=== PATIENT | male | born 1940 | race Caucasian/White ===

== ENCOUNTER 2017-11-29 10:28 | Emergency (ER) | payer MEDICARE ==
--- NOTE | 2017-11-29 10:34 | Emergency Department Record ---
History of Present Illness - General Stated Complaint: FALL Time Seen by Provider: 11/29/17 10:29 Source: Patient, Family, EMS Mode of Arrival: Stretcher Limitations: No limitations - History of Present Illness Initial Comments: 77 yo male presents with weakness, fall, and unable to get up for 2 days. He reportedly fell two days ago. He was in bed and was getting up. He states he slid to the floor without significant impact. He slid to the floor without hurting himself. He has been too weak to get up since then. He denies any injury. He denies any pain. He states he is generally so weak all over he is unable to stand, walk or function. No vision changes, no lateralizing weakness , no speech changes. No mental status changes. His has been trying to care for him on the floor for the last two days. He saw his PCP on the and Oncologist on the and was at his baseline. He states he was diagnosed in May with atrial fibrillation during an admission for pneumonia. He states he has not followed up with a assistant to the dean since being in the hospital. No headaches. No syncope. No shaking chills. His PCP is in [place] His Oncologist in at [facility] PMHx: Atrial fibrillation, Chronic Lymphocytic Leukemia, RA, HTN, Elevated Cholesterol, DM, Prostate Cancer, Anemia, UTI. MD Complaint: Cough, Shortness of breath -: Awoke with symptoms Severity: Moderate Quality: Other Consistency: Constant Improves With: Nothing Worsens With: Movement Context: Other Associated Symptoms: Other Treatments Prior to Arrival: None - Related Data Home Medications Medication Instructions Recorded Confirmed Last Taken Cyclosporine 50 mg PO DAILY 11/29/17 11/29/17 Unknown Finasteride [Proscar] 5 mg PO DAILY 11/29/17 11/29/17 Unknown Fluconazole [Diflucan] 400 mg PO DAILY 11/29/17 11/29/17 Unknown Lisinopril/Hydrochlorothiazide 1 each PO DAILY 11/29/17 11/29/17 Unknown [Lisinopril-Hctz 20-25 mg Tab] Metoprolol Tartrate [Lopressor] 25 mg PO BID 11/29/17 11/29/17 Unknown Allergies Allergy/AdvReac Type Severity Reaction Status Date / Time celecoxib AdvReac Unknown NAUSEA AND Verified 11/29/17 10:33 VOMITING Review of Systems Constitutional: Reports: Malaise, Weakness. Denies: Chills, Fever, Night sweats Eyes: Denies: Eye discharge, Eye pain, Photophobia, Vision change ENT: Denies: Congestion, Throat pain Respiratory: Denies: Cough, Dyspnea, Hemoptysis, Stridor, Wheezes Cardiovascular: Reports: Palpitations. Denies: Chest pain, Dyspnea on exertion , Edema, Syncope Endocrine: Denies: Fatigue Gastrointestinal: Denies: Abdominal pain, Diarrhea, Nausea, Vomiting Genitourinary: Denies: Dysuria, Frequency, Hematuria Musculoskeletal: Denies: Arthralgia, Back pain, Joint swelling, Myalgia Skin: Reports: Bruising Neurological: Reports: Weakness. Denies: Abnormal gait, Confusion, Headache, Numbness, Tingling, Tremors, Vertigo Psychiatric: Denies: Anxiety Hematological/Lymphatic: Reports: Easy bruising. Denies: Easy bleeding, Swollen glands Past Medical History - SOCIAL HISTORY Smoking Status: Former smoker - RESPIRATORY Hx Respiratory Disorders: No - CARDIOVASCULAR Hx Cardio Disorders: Yes Hx Hypertension: Yes (on meds good control) Hx Vascular Disease: Yes (problems with blood vessels in feet on meds) Comment:: high cholesterol - NEURO Hx Neuro Disorders: Yes Hx Neuropathy: Yes (feet) - GI Hx GI Disorders: Yes Hx Abdominal Pain: Yes Hx Reflux: Yes (on meds good control) Hx Nausea/Vomiting: Yes Hx of Polyps: Yes (colon) - Hx Genitourinary Disorders: Yes Hx Prostate Problems: Yes (enlarged prostate on meds) - ENDOCRINE Hx Endocrine Disorders: Yes Hx Diabetes: Yes Comment:: 107-124 - MUSCULOSKELETAL Hx Musculoskeletal Disorders: Yes Hx Arthritis: No Comment:: inflammatory infection in bed for 1 month in 7 and 8 16 tx prednisone - PSYCH Hx Psych Problems: No - HEMATOLOGY/ONCOLOGY Hx Hematology/Oncology Disorders: Yes Hx Bruising: Yes Hx Cancer: Yes (tongue, melanoma on back, prostate) Hx Chemotherapy: No Hx Radiation Therapy: No Family Medical History Hx Heart Disease: Father, Mother, Brother/Sister Physical Exam - General General Appearance: Alert, Oriented x3, Cooperative, No acute distress, Other ( Alert, clear speech, no confusion. Appears tired. Non labored in no distress.) Limitations: No limitations - Head Head exam: Atraumatic, Normal inspection - Eye Eye exam: Normal appearance, PERRL. negative: Conjunctival injection, Scleral icterus - ENT ENT exam: Normal exam, Mucous membranes moist Ear exam: Normal external inspection Nasal Exam: Normal inspection Mouth exam: Normal external inspection - Neck Neck exam: Normal inspection - Respiratory Respiratory exam: Normal lung sounds bilaterally. negative: Accessory muscle use, Decreased breath sounds, Prolonged expiratory, Respiratory distress, Rhonchi, Stridor, Wheezes - Cardiovascular Cardiovascular Exam: Irregular rhythm, Tachycardia. negative: Regular rate, Normal rhythm Peripheral Pulses: 2+: Radial (R), Radial (L) - GI/Abdominal GI/Abdominal exam: Soft. negative: Distended, Guarding, Rebound, Rigid, Tenderness - Rectal Rectal exam: Deferred - exam: Deferred - Extremities Extremities exam: negative: Normal inspection (chronic bruising), Calf tenderness, Full ROM, Joint swelling, Pedal edema, Tenderness - Back Back exam: Denies: CVA tenderness (R), CVA tenderness (L), Tenderness - Neurological Neurological exam: Abnormal gait, Alert, CN II-XII intact, Oriented X3, Other ( The patient moves all extremities symmetrically, no focal weakness, he is globally weak all over). negative: Motor sensory deficit - Psychiatric Psychiatric exam: Normal affect, Normal mood - Skin Skin exam: Other (forearm bruising) Course - Reevaluation(s) Reevaluation #1: EKG #1: 11/29/17 Rate: 128 Rhythm: sinus tach with numerous PAC's [place]: Normal Intervals: Normal ST segments: NS changes Prior: 03/15/16 NSR rate of 64 11/29/17 10:48 Vitals reviewed. 11/29/17 10:50 The labs to this point were reviewed CBC with WBC of 10.8 and Hgb of 8.7 The Hgb was 9.0 on 11/21/17 The CMP was reviewed Na 130 HCO3 19 AG 20 BUN 37 CR 1.5 Lactic Acid is normal at 1.4 Troponin is 0.01 HR increased to 140's Second EKG ordered EKG #2: 1138 Rate: 147 Rhythm: Atrial Fibrillation [place]: Normal Intervals: Normal ST segments: NS diffuse changes Prior: 1038 Cardizem ordered for rate control 11/29/17 11:44 The CXR was negative for acute process. No PVC, No CMG, No effusions The HCT was negative for acute changes. Chronic changes I explained with his atrial fibrillation of unknown duration I recommend anticoagulation at this time. His Hgb is stable anemia without significant change. [facility] does not have cardiology or ECHO for several days. I recommended transfer to a hospital with specialty care. The patient and spouse request [facility]. 11/29/17 11:58 11/29/17 12:15 Total CK 479 11/29/17 12:26 BP 101/69, on Cardizem drip. Tolerating well. Awaiting [facility] call back. Medical Decision Making - Lab Data Result diagrams: 11/29/17 10:45 11/29/17 10:45 Disposition Disposition: Transfer Clinical Impression: Atrial fibrillation with rapid ventricular response, Dehydration, Renal insufficiency Anemia Qualifiers: Anemia type: unspecified type Qualified Code(s): D64.9 - Anemia, unspecified Disposition: Acute Care Hospital Transfer Transfer To: [facility] Reason For Transfer: Afib with RVR Accepting Physician: Lili Time Discussed w/Accepting Physician: 12:33 Condition: (2) Stable Time of Disposition: 12:33 Quality - Quality Measures Quality Measures: N/A - Blood Pressure Screening Does Patient Have Any of the Following: Active Dx of HTN Blood Pressure Classification: Normal BP Reading Systolic Measurement: 114 Diastolic Measurement: 68 Screening for High Blood Pressure: Patient Exclusion, Hx of HTN [[id number]]
[2017-11-29] MEDS ORDERED: 0.9 % SODIUM CHLORIDE 1000ML 1,000 ML IV ONE (10:47)
[2017-11-29 10:56] LABS: HEMATOCRIT 29.3 % (42.0-52.0); HEMOGLOBIN 8.7 gm/dl (14.0-18.0); MEAN CELL VOLUME 81.6 fl (81-97); MEAN CORPUSCULAR HEMOGLOBIN 24.2 pg (27-33); MEAN CORPUSCULAR HGB CONC 29.7 g/dl (32-36); MEAN PLATELET VOLUME 11.3 fl (7.4-10.4); PLATELET COUNT 136 K/uL (130-400); RED BLOOD COUNT 3.59 M/uL (4.40-5.70); RED CELL DISTRIBUTION WIDTH 16.6 % (11.5-14.5); WHITE BLOOD COUNT W/O DIFF 10.8 K/uL (4.2-12.2)
[2017-11-29] MEDS ORDERED: ONDANSETRON HCL IV 4 MG/2 ML VIAL IVP ONE ×2 (11:00→14:29)
[2017-11-29 11:16] LABS: PLATELET ESTIMATE NORMAL (NORMAL)
[2017-11-29 11:24] LABS: BLOOD UREA NITROGEN 37 mg/dL (8-23); CREATININE 1.5 mg/dL (0.7-1.2); EST GLOMERULAR FILTRATION RATE 48 mL/min
[2017-11-29 11:25] LABS: INR 1.2; PROTHROMBIN TIME (PATIENT) 13.2 SECONDS (9.5-12.1); TOTAL PROTEIN 7.4 g/dL (6.6-8.7)
[2017-11-29 11:27] LABS: GLUCOSE,RANDOM 141 mg/dL (74-109)
[2017-11-29 11:30] LABS: ALB/GLOB RATIO 0.8 (1.1-1.8); ALBUMIN 3.3 g/dL (4.0-5.0); ALKALINE PHOSPHATASE 75 U/L (40-129); ALT/SGPT 40 U/L (<41); AST/SGOT 44 U/L (10.0-50.0)
[2017-11-29] MEDS ORDERED: DILTIAZEM 25MG/5ML VIAL IV ONE (11:43)
[2017-11-29] MEDS ORDERED: DILTIAZEM HCL 125 MG in 0.9 % SODIUM CHLORIDE 100ML 100 ML IV SCH (11:45)
[2017-11-29 11:53] LABS: CKMB 1.3 ng/mL (<6.73)
[2017-11-29] MEDS ORDERED: HEPARIN SODIUM/D5W 25,000 UNITS/500 ML BAG IV SCH (12:15)
--- NOTE | 2017-11-30 20:51 | RADIOLOGY REPORT ---
EXAM: CHEST 2 VIEWS HISTORY: COUGH AND WEAKNESS. TECHNIQUE: Upright AP and lateral views of the chest. COMPARISON: None. FINDINGS: The heart is not enlarged and the pulmonary vasculature is nondilated. The thoracic aorta is mildly tortuous and atherosclerotic. Minor linear scarring vs. atelectasis is present in the lateral left lung base. The lungs and pleural spaces are otherwise clear. There are degenerative endplate changes throughout the thoracic spine. Mild to moderate degenerative changes of the shoulder girdles. IMPRESSION: 1. MINOR LINEAR SCARRING VS. ATELECTASIS WITHIN THE LATERAL LEFT LUNG BASE. 2. NOT MENTIONED ABOVE IS A PROBABLE HIATAL HERNIA. J[facility]BER: [id number] [facility]
--- NOTE | 2017-11-30 20:57 | CT SCAN REPORT ---
EXAM: CT SCAN HEAD WO CONTRAST HISTORY: WEAKNESS. NAUSEA AND VOMITING. TECHNIQUE: Routine noncontrast CT examination of the head. COMPARISON: None. FINDINGS: There is mild dilatation of the subarachnoid spaces consistent with age-related atrophy. The ventricles are near the upper limits of normal in size. Minor periventricular white matter lucencies are present in each cerebral hemisphere symmetrically. No other area of abnormally increased or decreased attenuation is noted throughout the brain substance. No abnormal extraaxial fluid collection is seen. There is minimal mucosal thickening in a few paranasal sinuses. The mastoid air cells are clear. The orbits as visualized are unremarkable. IMPRESSION: 1. NO CT EVIDENCE OF ACUTE MAJOR VESSEL INFARCTION, INTRACRANIAL HEMORRHAGE, NOR MASS. 2. MILD ATROPHY. 3. MINOR WHITE MATTER LUCENCIES IN EACH CEREBRAL HEMISPHERE ARE NONSPECIFIC THOUGH LIKELY AREAS OF CHRONIC SMALL VESSEL ISCHEMIA. JOB [facility]BER: [id number] [facility]
== END 2017-11-29 14:50 | disposition short-term general hospital (02) ==
LOC: ER 10:28
DX: J15.0 Pneumonia due to Klebsiella pneumoniae (principal); I48.0 Paroxysmal atrial fibrillation; E86.0 Dehydration; N28.9 Disorder of kidney and ureter, unspecified; D64.9 Anemia, unspecified; I10 Essential (primary) hypertension; Z87.891 Personal history of nicotine dependence; Z85.6 Personal history of leukemia
CPT/HCPCS: 99285 ×2; 96376; 96365; 96366; 96375; 96361; 96368; 82550; 83605; 85730; 85610; 82553; 80053; 84484; 85027; 71046; 70450; 93005; 93010; J2405; J7030